=== PATIENT | female | born 1950 | race Caucasian/White ===

== ENCOUNTER → 2020-07-23 | Outpatient (CLI) | payer OTHER ==
[~2020-07-23] MED LIST: REGADENOSON 0.4 MG/5 ML DISP.SYRIN. IV ONE
--- NOTE | 2020-07-23 13:38 | RAD ---
MR#: [id number] Date of Study: 07/23/2020 Ordering Physician: CANDELARIO MENA, Referring Physician: LYN HURTADO Tech: RT Juany Abel) (N) APPROVED REPORT Test Type: Pharmacological Stress Nurse/Tech: Monica Sears R.N. Test Indications: palpitations, dyspnea on exertion Cardiac History: htn, dm Medications: see ehr Medical History: see ehr Resting ECG: SR Resting Heart Rate: 77 bpm Resting Blood Pressure: 174/88mmHg Pretest Chest Pain: No chest pain Nurse/Tech Notes LUNGS cta, heart sounds regular Consent: The procedure was explained to the patient in lay terms. Informed consent was witnessed. Roland eout was entered into [facility]. History and Stress Test performed by RT Juany Toney) (N) Pharm. Details Pharmacologic stress testing was performed using 0.4mg per 5ml of regadenoson given intravenously ove r 7-10 seconds. Stress Symptoms No chest pain or symptoms.DyspneaDizziness POST EXERCISE Reason for Termination: Infusion complete Target HR: No Max HR: 105 bpm Max Blood Pressure: 177/85mmHg Chest Pain: No. Arrhythmia: No. ST Change: No. INTERPRETATION Stress EKG Conclusion: Baseline EKG showed sinus rhythm. No ischemic changes at peak stress. No arr hythmias. Imaging Protocol IMAGE PROTOCOL: Rest Tc-99m/stress Tc-99m 1 day Rest: Stress: Viability: Radiopharm.Tc99m DhdxjrilfVn73g Sestamibi Dose10.5mCi 31mCi Duration 13min. 13min. Img Date 07/23/2020 07/23/2020 Inj-Img [id number]. 60min. Rest Admin Site:IV - Left AntecubitalAdministrator:RT Juany Toney)(N) Stress Admin Site: IV - Right AntecubitalAdministrator: RT Juany Toney)(N) STRESS DATA End Diast. Vol.47.0mlLVEDV index BSA31.0ml End Syst. Vol.13.0mlLVESV index BSA8.0ml Myocardial Mass83.0gEject. Klmclnta70.0% Stress Scores Regional WT1.00Summed WT5.00 Regional WM0.00Summed WM10.00 Study quality was good. Left Ventricular size was Normal at Rest and Stress. Lung uptake was . Left Ventricular ejection fraction is 71%. The rest and stress images show normal perfusion, normal contraction and thickening. LV Perf. Quant 17 Seg. SSS0.00 17 Seg. SRS0.00 17 Seg. SDS0.00 Stress Defect Extent (% LAD)0.00Rest Defect Extent (% LAD)0.00Rev. Defect Extent (% LAD)0.00 Stress Defect Extent (% LCX) 0.00Rest Defect Extent (% LCX)0.00Rev. Defect Extent (% LCX)0.00 Stress Defect Extent (% RCA)0.00Rest Defect Extent (% RCA)0.00Rev. Defect Extent (% RCA)0.00 Stress Defect Extent (% SERGEI)0.00Rest Defect Extent (% SERGEI)0.00Rev. Defect Extent (% SERGEI)0.00 Conclusion 1. Regadenoson cardioisotope stress test did not show any evidence of ischemia or infarct. 2. Normal left ventricular systolic function with ejection fraction calculated at 71%. 3. Low risk for cardiac events. Signed by : Fran Saucedo, Electronically Approved : 07/23/2020 13:38:03
== END ==
LOC: NM 08:30
PROVIDERS: ATTEND Internal Medicine Cardiovascular Disease
DX: I10 Essential (primary) hypertension (principal)
CPT/HCPCS: 78452; 93017; A9500; J2785

== ENCOUNTER → 2020-11-26 | Outpatient (CLI) | payer OTHER ==
--- NOTE | 2020-11-26 14:46 | RAD ---
EXAM: Brain MRI without contrast. HISTORY: Benign essential tremor. Headaches. Aphasia. TECHNIQUE: Multiplanar, multisequence magnetic resonance imaging of the brain was performed without c ontrast. COMPARISON: None. FINDINGS: There is no restricted diffusion to suggest acute or subacute infarction. There is no susce ptibility effect to suggest hemorrhage. There is no mass effect or midline shift. There is no hydroce phalus. There are multiple scattered focal areas of signal change within the cerebral white matter, l ikely due to chronic small vessel disease. There is mild cerebral volume loss. There is evidence of l ens surgery. The paranasal sinuses and mastoid air cells are unremarkable. There are normal flow void s within the cerebral vessels. There is no suspicious calvarial lesion. IMPRESSION: 1. No acute intracranial finding. 2. Multiple scattered focal areas of signal change within the cerebral white matter, likely due to ch ronic small vessel disease in a patient of this age. Electronically signed by: Shelby Juan MD (11/26/2020 2:43 PM) [facility]
== END ==
LOC: MRI 13:05
PROVIDERS: ATTEND Nurse Practitioner Family
DX: R51.9 Headache, unspecified (principal); R47.01 Aphasia; G25.0 Essential tremor; Z86.73 Personal history of transient ischemic attack (TIA), and cerebral infarction without residual deficits
CPT/HCPCS: 70551

== ENCOUNTER → 2020-12-02 | Outpatient (CLI) | payer OTHER ==
--- NOTE | 2020-12-02 13:34 | RAD ---
CT of the abdomen without contrast. 12/02/2020 1:05 PM Indication: Reason: NAUSEA / Comparison Study: None. Technique: Multidetector CT imaging of the abdomen was performed without administration of contrast. Findings: The visualized bilateral lung bases are clear. There is a large partially calcified stone within the gallbladder lumen. The liver, spleen, bilateral adrenal glands, and pancreas have a normal noncontrast enhanced appearance. Minimal nonspecific perinephric stranding is seen bilaterally without evidence of significant hydrone phrosis or nephrolithiasis. No gross pneumoperitoneum or free fluid is seen in the upper abdomen. No evidence of bowel obstruction is seen. No acute osseous changes are seen. Impression: 1. Cholelithiasis with large stone within the gallbladder lumen 2. No acute intra-abdominal abnormality is identified CT DOSING PQRS STATEMENT: One or more of the following individualized dose reduction techniques were utilized for this examinat ion: 1. Automated exposure control 2. Adjustment of the mA and/or kV according to patient size 3. Use of iterative reconstruction technique Electronically signed by: William Holman MD (12/02/2020 1:32 PM) [id number]
== END ==
LOC: CT 13:01
PROVIDERS: ATTEND Nurse Practitioner Family
DX: K80.20 Calculus of gallbladder without cholecystitis without obstruction (principal); R11.0 Nausea
CPT/HCPCS: 74150

== ENCOUNTER 2021-03-02 11:02 | Day surgery (SDC) | payer OTHER ==
[~2021-03-02] VITALS: Ht 137.2 cm; Wt 63.0 kg
[~2021-03-02 11:02] MED LIST changes: +ACETAMINOPHEN 500 MG TABLET PO PRN; +AMLO-186 PO; +ASPI-630 PO; +CHOL5000 PO; +FLUT9.9S NS; +GLIP10TA13 PO; +HYDROmorphone 2 MG/ML INJ. IVP PRN; +IV RINGERS,LACTATED 1000ML 1,000 ML IV SCH; +MORPHINE SULFATE 2 MG/ML INJ. IVP PRN; +OMEG1CAP50 PO; +ONDA4TAB12 PO; +PROCHLORPERAZINE 10 MG/2 ML VIAL. IVP PRN; -REGADENOSON 0.4 MG/5 ML DISP.SYRIN. IV ONE; +SITA1TAB11 PO; +TELM20TA7 PO; +ceFAZolin SODIUM IV Push 1 GM VIAL. IVP PRN; +fentaNYL PF VIAL 100 MCG/2 ML VIAL IVP PRN
[2021-03-02 11:39] VITALS: BP 172/77
--- NOTE | 2021-03-02 11:49 | PDOC1 ---
History and Physical Date of Admission Date of Admission DATE: 03/02/21 TIME: 11:46 Identification/Chief Complaint Chief Complaint Right upper quadrant abdominal pain Source Source: Chart review, Patient History of Present Illness History of Present Illness 71-year-old female with right upper quadrant abdominal pain evaluated in the emergency department with a CT scan which showed a large gallstone within the gallbladder no evidence of acute inflammation Past Medical History Cardiovascular: HTN Pulmonary: No pertinent hx CENTRAL NERVOUS SYSTEM: CVA GI: GERD Heme/Onc: Anemia NOS Hepatobiliary: No pertinent hx Psych: Anxiety Rheumatologic: No pertinent hx Infectious disease: No pertinent hx ENT: Sincusitis Renal/: No pertinent hx Endocrine: Diabetes Dermatology: No pertinent hx Past Surgical History Past Surgical History: Cataract Removal, Family History Family History: No Significant Social History Smoke: No ALCOHOL: none Drugs: None Current Medications Current Medications Current Medications Fentanyl Citrate (Fentanyl 2ml Vial) 25 mcg PRN Q5MIN PRN IVP MILD PAIN 1-3; Start 03/02/21 at 06:00; Stop 03/03/21 at 05:59 Fentanyl Citrate (Fentanyl 2ml Vial) 50 mcg PRN Q5MIN PRN IVP MODERATE PAIN 4- 6; Start 03/02/21 at 06:00; Stop 03/03/21 at 05:59 Morphine Sulfate (Morphine Sulfate) 1 mg PRN Q10MIN PRN IVP SEVERE PAIN 7-10; Start 03/02/21 at 06:00; Stop 03/03/21 at 05:59 Ringer's Solution 1,000 ml @ 30 mls/hr Q24H IV ; Start 03/02/21 at 06:00; Stop 03/02/21 at 17:59 Hydromorphone HCl (Dilaudid) 0.5 mg PRN Q10MIN PRN IVP SEVERE PAIN 7-10, 2nd CHOICE; Start 03/02/21 at 06:00; Stop 03/03/21 at 05:59 Prochlorperazine Edisylate (Compazine) 5 mg PACU PRN PRN IVP NAUSEA, MRX1; Start 03/02/21 at 06:00; Stop 03/03/21 at 05:59 Cefazolin Sodium (Ancef) 1 gm 1X PREOP PRN IVP PRIOR TO PROCEDURE; Start 03/02/21 at 08:00; Stop 03/02/21 at 12:00 Acetaminophen (Tylenol) 1,000 mg 1X PREOP PRN PO PRIOR TO PROCEDURE; Start 03/02/21 at 08:00; Stop 03/02/21 at 12:00 Active Scripts Active Reported Vitamin D3 (Vitamin D) 125 Mcg Capsule 125 Mcg PO DAILY 5,000 UNITS = 125 MCG Glipizide 10 Mg Tablet 10 Mg PO BID Flonase Allergy Relief (Fluticasone Propionate) 9.9 Ml [place].susp 2 Sprays NS DAILY Fish Oil 1,000 Mg Softgel ([place]-3 Fatty Acids/Fish Oil) 1 Each Capsule 1 Each PO DAILY Amlodipine Besylate 5 Mg Tablet 5 Mg PO HS Aspirin 81 Mg Tab.chew 81 Mg PO DAILY Ondansetron Odt (Ondansetron) 4 Mg Tab.rapdis 4 Mg PO BID PRN Telmisartan 20 Mg Tablet 20 Mg PO BID Janumet 50-1,000 Mg Tablet (Sitagliptin Phos/Metformin Hcl) 1 Each Tablet 1 Each PO DAILY Allergies Allergies: Coded Allergies: pregabalin (Unverified Allergy, Intermediate, Rash, 03/02/21) Opioids - Morphine Analogues (Verified Allergy, Mild, Nausea and Vomiting, 03/02/21) codeine (Verified Allergy, Mild, "GET REALLY DEPRESSED", 03/02/21) ROS Gastrointestinal: Yes Abdominal Pain Physical Exam General: Alert, Oriented X3, Cooperative, No acute distress HEENT: Atraumatic, EOMI Lungs: Clear to auscultation, Normal air movement Heart: RRR, no murmurs Abdomen: Normal bowel sounds, Soft, Other (Tender to palpation right upper quadrant) Rectal Exam: not examined Extremities: No edema Skin: No significant lesion Neuro: Normal gait, Normal speech Psych/Mental Status: Mental status NL Vitals Vitals Vital Signs Date Time Temp Pulse Resp B/P (MAP) Pulse Ox O2 Delivery O2 Flow Rate FiO2 03/02/21 11:39 97.2 89 14 100 97.2 Labs Labs Laboratory Tests Test 03/02/21 11:35 Glucose (Fingerstick) 127 mg/dL (70-99) Laboratory Tests Test 03/02/21 11:35 Glucose (Fingerstick) 127 mg/dL (70-99) VTE Prophylaxis Ordered VTE Prophylaxis Devices: Yes VTE Pharmacological Prophylaxi: Contraindicated Assessment/Plan Assessment/Plan Chronic cholecystitis cholelithiasis plan laparoscopic cholecystectomy Justifications for Admission Other Justification LOUISA NAPOLES MD Mar 02, 2021 11:49
[2021-03-02] MEDS ORDERED: INSULIN LISPRO 100 UNIT/ML 3ML VIAL for OP,RR ONLY. SQ PRN (12:00)
[2021-03-02] MEDS ORDERED: PROPOFOL 10 MG/ML (20ML) VIAL. IV ONE (12:38)
[2021-03-02] MEDS ORDERED: LIDOCAINE 2% PF 5 ML VIAL. ONE (12:38)
[2021-03-02] MEDS ORDERED: DEXAMETHASONE SOD PHOS 4 MG/ML VIAL ONE (12:38)
[2021-03-02] MEDS ORDERED: ONDANSETRON PF 4 MG/2 ML VIAL. ONE (12:38)
[2021-03-02] MEDS ORDERED: ROCURONIUM 50 MG/5 ML VIAL. ONE (12:38)
[2021-03-02] MEDS ORDERED: fentaNYL PF VIAL 100 MCG/2 ML VIAL ONE (12:38)
[2021-03-02] MEDS ORDERED: SUCCINYLCHOLINE 200 MG/10 ML VIAL. ONE (12:44)
[2021-03-02] MEDS ORDERED: BUPIVACAINE-EPI 0.25% 30 ML VIAL KIT. ONE (12:52)
[2021-03-02] MEDS ORDERED: IOHEXOL 300 MG/ML 50 ML VIAL. ONE (12:52)
[2021-03-02] MEDS ORDERED: SURGICEL HEMOSTAT 4X8 EACH. ONE (12:52)
[2021-03-02] MEDS ORDERED: NEOSTIGMINE METHYLSULFATE 5 MG/5 ML SYRINGE. ONE (13:48)
[2021-03-02] MEDS ORDERED: GLYCOPYRROLATE 1 MG/5 ML VIAL. ONE (13:48)
--- NOTE | 2021-03-02 14:04 | PDOC4 ---
Operative Note Operative Note Date: March 02, 2020 at 2:01 PM Preoperative diagnosis: Chronic cholecystitis cholelithiasis Postoperative diagnosis: Same Procedure: Laparoscopic cholecystectomy with fluorescein cholangiography Surgeon: Alfa Specimen: Gallbladder Dictation: Patient is 71-year-old female with complaints of right upper quadrant abdominal pain and a CT scan showing large gallstones within the gallbladder. Procedure of laparoscopic cholecystectomy was explained to the patient detail risk-benefit were also discussed including bleeding infection injury to intra- abdominal contents possibly sustain further open operations alternatives to this procedure also discussed with the patient who seemed to understand and gave a verbal written consent to have procedure performed. Patient was taken to the operating room placed in the supine position general anesthesia was initiated once patient was sleeping intubated her abdomen was prepped and draped usual sterile fashion using ChloraPrep. Area just above the umbilicus was injected with quarter percent Marcaine with epinephrine incision was made Levlite scalpel and a varies needle was placed within the abdomen creating pneumoperitoneum once this was complete the millimeter port was placed and a 5 mm camera placed within the abdomen which was inspected no other abnormalities were noted. 5 mm port was placed in the epigastrium a 5 mm ports placed in the right midabdomen and 5 mm ports placed in the right lateral abdomen all under direct visualization. The dome of the gallbladder is grasped retracted cephalad the infundibulum the gallbladder is grasped retracted laterally exposing the triangle adherent tissues of the triangle were taken down exposing the cystic duct and cystic artery fluorescing cholangiography was then performed which showed dye within the cystic duct down to the common bile duct without any evidence of obstruction. The cystic duct was doubly clipped and transected the cystic artery was also clipped and transected the gallbladder was taken off the liver with hook electrocautery placed in Endo Catch bag moved to the umbilicus the right upper quadrant was irrigated and suctioned dry hemostasis deemed to be appropriate and the pneumoperitoneum was reduced all ports were removed the fascial defect at the umbilicus was closed with a [id number] 0 Vicryl suture and the skin was reapproximated all port sites for subcuticular Monocryl Mastisol Steri-Strips and island dressings were applied. Patient was awakened and extubated in the operating room taken to recovery in stable condition all sponge instrument needle counts listed as correct estimated blood loss 10 mL. LOUISA NAPOLES MD Mar 02, 2021 14:04
--- NOTE | 2021-03-02 14:05 | DISCH ---
DISCHARGE INSTRUCTIONS Condition on Discharge Condition on Discharge: Stable Activity After Discharge Activity Instructions for Disc: Avoid exertion Other activity instructions: No lifting more than 20 pounds for 2 weeks Diet after Discharge Diet after Discharge: Low Fat Wound Incision Care Other wound/incision instructi: May shower in 24 hours Contacting the after DC Call your doctor for: If your condition worsens Follow-Up Follow up with: Dr. Napoles in 2 weeks LOUISA NAPOLES MD Mar 02, 2021 14:05
[2021-03-02] MEDS ORDERED: PROCHLORPERAZINE 10 MG/2 ML VIAL. ONE (14:49)
[2021-03-02] MEDS ORDERED: HYDROmorphone 2 MG/ML INJ. ONE (14:50)
[2021-03-02] MEDS ORDERED: INSULIN LISPRO 100 UNIT/ML 3ML VIAL for OP,RR ONLY. SQ ONE (15:25)
[2021-03-02 16:45] VITALS: BP 124/55
[2021-03-03] MEDS ORDERED: INDOCYANINE GREEN 2.5 MG in TOTAL VOLUME SYRINGE 1 ML IVP ONE (06:00)
--- NOTE | 2021-03-04 16:08 | PATHOLOGY ---
[facility] Accession Number: [id number] . 01 Material submitted: . gallbladder - GALLBLADDER AND CONTENTS . 01 Clinical history: . CHRONIC CHOLECYSTITIS LAP [place] . 02 Diagnosis: Gallbladder, laparoscopic cholecystectomy: - Cholelithiasis. - Cholesterolosis, focal. - Chronic cholecystitis. (JPM:som; 03/04/2021) QMS 03/04/2021 1559 Local . 02 Comment: There is no evidence of malignancy. (JPM:som; 03/04/2021) . 02 Electronically signed: . Javier Katz MD, Pathologist NPI- [id number] . 01 Gross description: . Labeled: Gallbladder and contents Specimen received: Intact gallbladder specimen in formalin Dimensions: 6.3 x 3.0 x 2.6 cm Serosa: Silva-macias, smooth and glistening [place]: Silva-yellow, shaggy and cauterized Lymph node: Not identified Mucosa: Silva and slightly bile stained, velvety and focally denuded Wall thickness: 0.1-0.2 cm Calculi: A single 4.2 x 2.4 x 2.4 cm ovoid, silva-brown to black, granular cholelith is identified within the fundus and body of the gallbladder. Lesions: None identified . A1- Core Maker Helper neck, body, fundus, and the cystic duct margin. (JGG; 03/03/2021) JGG/JNABIL 03/03/2021 0959 Local . 02 Pathologist provided ICD-10: K81.1 . 02 CPT . 020209 Specimen Comment: A courtesy copy of this report has been sent to [phone] Specimen Comment: [id number] Specimen Comment: Report sent to / DR CAIN Performed at: 01 [facility] [address], [place], [place] [id number] MD Beny Nunez MD Phone: [phone] Performed at: 02 [facility] [address] [place], [place] [id number] MD Javier Katz MD Phone: [phone]
== END 2021-03-02 17:52 | disposition home or self-care (01) ==
LOC: SURG 11:02
PROVIDERS: ATTEND Surgery
DX: K80.10 Calculus of gallbladder with chronic cholecystitis without obstruction (principal); K21.9 Gastro-esophageal reflux disease without esophagitis; F41.9 Anxiety disorder, unspecified; I12.9 Hypertensive chronic kidney disease with stage 1 through stage 4 chronic kidney disease, or unspecified chronic kidney disease; E11.22 Type 2 diabetes mellitus with diabetic chronic kidney disease; N18.4 Chronic kidney disease, stage 4 (severe); M19.90 Unspecified osteoarthritis, unspecified site; F32.9 Major depressive disorder, single episode, unspecified; Z98.51 Tubal ligation status; Z86.73 Personal history of transient ischemic attack (TIA), and cerebral infarction without residual deficits; Z98.890 Other specified postprocedural states; Z79.899 Other long term (current) drug therapy; Z79.82 Long term (current) use of aspirin; Z87.891 Personal history of nicotine dependence; Z88.5 Allergy status to narcotic agent; Z88.6 Allergy status to analgesic agent; Z88.8 Allergy status to other drugs, medicaments and biological substances
CPT/HCPCS: 47563; 82962; A4364; A4930; A6219; J0690; J0780; J1100; J1170; J2405; J2704; J2710; J3010; J3490; A4657; J0330; J1815; Q9967